=== PATIENT | female | born 1970 | race Caucasian/White ===

== ENCOUNTER 2017-05-24 05:28 | Inpatient (IN) | payer OTHER ==
[~2017-05-24] VITALS: Ht 173 cm; Wt 78.0 kg
--- NOTE | ~2017-05-24 | WRIGHTHP ---
[place], [place] PATIENT HISTORY AND PHYSICAL EXAM NAME: SARAH GÓMEZ UNIT #: [id number] ROOM: 511 DOCTOR: AUBREY BUSTILLO MD BIRTHDATE: [birth year] DOS: 05/24/2017 HISTORY OF PRESENT ILLNESS: The patient with a past medical history of benign essential hypertension, presented to the Emergency Department with off and on complaints of sensation of palpitations for some time and then she started complaining of some precordial chest pain with no shortness of breath and nausea, but she did feel dizzy with the palpitations. No nausea or diaphoresis. No other GI or urinary symptoms. No fainting episodes. The patient's chest pains have resolved and she has been seen by Cardiology. REVIEW OF SYSTEMS: LUNGS: No shortness of breath or wheezing. GASTROINTESTINAL: No nausea, vomiting or diarrhea. CARDIOVASCULAR SYSTEM: Complains of some chest pains prior to coming to the hospital, but she is pain free now. Occasional complains of palpitations with dizziness, but no fainting spells. FAMILY HISTORY: Noncontributory. PHYSICAL EXAMINATION: VITAL SIGNS: Blood pressure 124/78, heart rate of 74 beats per minute, breathing 20 times per minute, temperature 98 degrees Fahrenheit. LABORATORY DATA: Negative cardiac enzymes x 3. IMPRESSION AND PLAN: 1. The patient with chest pain from uncertain etiology with negative cardiac enzymes. Dr. Landeros, the wet mix operator wants to do a cardiac stress test on her as an outpatient. 2. Occasional palpitations with some dizziness. The patient asked to count her heart rate when she has these episodes, but then she will also get a Holter monitor study as an outpatient by Dr. Landeros. The patient's cardiac monitoring at the hospital has shown no tachycardia so far. 3. Benign essential hypertension with controlled blood pressures. [place], [place] PATIENT HISTORY AND PHYSICAL EXAM NAME: SARAH GÓMEZ UNIT #: [id number] ROOM: 511 DOCTOR: AUBREY BUSTILLO MD BIRTHDATE: [birth year] AUBREY BUSTILLO MD CM:HISPHYS:PATIENT HISTORY AND PHYSICAL EXAMINATION [id number] [phone] AUBREY BUSTILLO MD 05/24/172221 interface
--- NOTE | ~2017-05-24 | CON ---
[place], [place] REPORT OF CONSULTATION NAME: SARAH GÓMEZ [facility] #: [id number] UNIT #: [id number] ROOM: 511 DOCTOR: JOSE GIBSON MD BIRTHDATE: [birth year] DOS: 05/24/2017 REASON FOR CONSULTATION: Palpitations. CONSULTING PHYSICIAN: Dr. Correa. HISTORY OF PRESENT ILLNESS: This is a 47-year-old patient with history of hypertension, morbid obesity, presented to the Emergency Room with intermittent palpitations. She is describing these as heart fluttering several times a day. This has been going on for about 2 months. No associated dizziness or syncope. The symptoms lasted for a few seconds and is usually relieves with bending forward, coughing with Valsalva maneuver. During these palpitations, she noted to have some chest heaviness, otherwise, she denies any exertional chest pains. She noted that the symptoms are gradually progressive. She did cut back her caffeine, especially coffee, but still having these symptoms. She has history of hypertension for 3 years and she takes Coreg for blood pressure. She denies any nausea, vomiting, diarrhea, no fever, no chills, no hemoptysis, no headaches, occasional left leg edema is positive, but no tingling, numbness or weakness. No blurred vision or double vision, no genitourinary symptoms. No musculoskeletal symptoms, especially she denies any exertional chest pains. REVIEW OF SYSTEMS: Review of the 10 systems negative except as mentioned above. PAST MEDICAL HISTORY: 1. Hypertension. 2. Non-morbid obesity. HOME MEDICATIONS: Reviewed home medications are Coreg 6.25 twice a day. FAMILY HISTORY: History of colon cancer, but no premature coronary artery disease. PAST SURGICAL HISTORY: Reviewed. PHYSICAL EXAMINATION: VITAL SIGNS: Blood pressure 122/76, pulse 86, respiratory rate 20. Weight 78 kilos with a BMI 26.1. GENERAL: Alert, comfortable, in no acute distress. HEENT: Pupils are round and equal. Tongue was moist and pharynx clear. NECK: Supple, no distended neck veins, no carotid bruit. Thyroid not palpable. CHEST: Chest wall symmetrical, nontender. LUNGS: Clear to auscultation bilaterally. HEART: Regular, no S3, grade 1/6 soft systolic murmur. No palpable thrills. ABDOMEN: Bowel sounds normal. EXTREMITIES: Showed no edema. Distal pulses are palpable. SKIN: Warm and dry. No cyanosis, no clubbing. NEUROLOGIC: The patient is alert, oriented. No focal neurologic deficit. RECTAL: Deferred. GENITOURINARY: Deferred. [place], [place] REPORT OF CONSULTATION NAME: SARAH GÓMEZ UNIT #: [id number] ROOM: 511 DOCTOR: JOSE GIBSON MD BIRTHDATE: [birth year] REVIEW OF THE DIAGNOSTIC TESTS: EKG shows sinus rhythm with no acute ST-T changes, normal QT interval. Patient had occasional PVCs. Her labs reviewed including CBC, chemistry. The troponin x 2 negative. Magnesium 2.2, bilirubin was 1.2. IMPRESSION: 1. Palpitations, possible supraventricular tachycardia, none was diagnosed so far and documented. 2. Occasional ventricular ectopy. 3. Hypertension, stable on her Coreg. 4. Non-morbid obesity. RECOMMENDATIONS: Check a TSH to rule out hyperthyroidism. ____ for any tachyarrhythmias on the monitor; so far, nothing was documented. If she has no further symptoms, she can be discharged home tomorrow and she will need outpatient cardiac event monitor, 30 days, as well as outpatient 2D echo and as well as outpatient exercise nuclear stress test. Risk factor modification discussed. Further recommendation based on her symptoms. Further treatment for her palpation including medications versus a possible EP referral collaboration was discussed with her and her who is at bedside and all questions were answered. JOSE GIBSON MD CM:CONSTR:REPORT OF CONSULTATION 1426 05/24/17 2247 interface
--- NOTE | ~2017-05-24 | EKG ---
[place], [place] ELECTROCARDIOGRAM REPORT NAME: SARAH GÓMEZ UNIT #: [id number] ROOM: 511 DOCTOR: PAIGE DAWN,JOSE BIRTHDATE: [birth year] DOS: 05/24/2017 TIME: 0541 hours. IMPRESSION: 1. Sinus rhythm. 2. Ventricular ectopy. 3. Baseline artifacts. JOSE GIBSON MD CM:EKGRPT:ELECTROCARDIOGRAM REPORT [id number] 1309 JOSE GIBSON MD
--- NOTE | ~2017-05-24 | PR ---
[place], [place] PROGRESS NOTE NAME: SARAH GÓMEZ UNIT #: [id number] ROOM: 511 DOCTOR: JOSE GIBSON MD BIRTHDATE: [birth year] DOS: 05/25/2017 REASON FOR VISIT: Palpitations and hypertension. SUBJECTIVE: The patient denies any chest pain, palpitations. No dizziness, no nausea, vomiting. No fever or chills. No PND, no orthopnea. She had slight bradycardia during midnight, asymptomatic. RHYTHM STRIPS: The patient is in sinus rhythm, sinus bradycardia at midnight; the heart rates in the high 40s. PHYSICAL EXAMINATION: VITAL SIGNS: Blood pressure 120/62, pulse 75, respiratory rate 20. GENERAL: Alert, comfortable, in no acute distress. HEAD AND NECK: Supple, no distended neck veins, no carotid bruit. Tongue was moist and pharynx was clear. CHEST: Symmetrical, nontender. LUNGS: Clear to auscultation bilaterally. HEART: Regular rhythm, no S3. ABDOMEN: Bowel sounds normal. EXTREMITIES: No edema. Distal pulses palpable. SKIN: Warm and dry. No cyanosis, no clubbing. NEUROLOGIC: The patient is alert, oriented. No focal neurologic deficit. IMPRESSION: 1. Palpitations, currently stable, no tachycardia on the monitor. 2. Sinus bradycardia at night, asymptomatic. 3. Hypertension, stable. 4. Non-morbid obesity. RECOMMENDATIONS: 1. Continue current medications. 2. She would like to go home today. 3. She needs outpatient cardiac event monitor for her palpitations and also she needs a 2D echo for LV function and valvular function and also exercise nuclear stress test to rule out underlying ischemia due to her palpitations and hypertension. Her cardiac event monitor, stress test and echo will be scheduled as outpatient and she will follow up with [facility]iology office after the above tests. Above treatment plan discussed with the patient and all questions answered. She can be discharged home today on her home medications. [place], [place] PROGRESS NOTE NAME: SARAH GÓMEZ UNIT #: [id number] ROOM: 511 DOCTOR: JOSE GIBSON MD BIRTHDATE: [birth year] JOSE GIBSON MD CM:TING [phone] JOSE GIBSON MD 05/25/172354 interface
--- NOTE | ~2017-05-24 | DS ---
[place], [place] DISCHARGE SUMMARY NAME: SARAH GÓMEZ UNIT #: [id number] ROOM: 511 DOCTOR: AUBREY BUSTILLO MD BIRTHDATE: [birth year] DOS: 05/25/2017 DISCHARGE DIAGNOSES: 1. Chest pains from uncertain etiology, negative cardiac enzymes. The patient is scheduled for outpatient cardiac stress as an Holter monitor by Dr. Landeros. 2. Palpitations off and on, possible supraventricular tachycardia. The patient to get Holter monitor study as an outpatient to be arranged by Dr. Landeros. 3. Benign essential hypertension. A 47-year-old female presented to the Emergency Department with precordial chest pain and history of recurrent palpitations or dizziness. HOSPITAL COURSE: The patient was admitted and ruled out for myocardial infarction with serial cardiac enzymes and cleared by Dr. Landeros, the surgeon, for discharge to home today. Dr. Landeros has arranged for her to get a Holter monitoring study and a cardiac stress test performed as an outpatient. The patient will also go and see her primary care physician, Dr. Daniel Garza, as an outpatient within less than a week of discharge. I have added aspirin to her treatment and she will continue with Coreg she was taking at home. The patient remained on a director cardiac and no significant cardiac dysrhythmias were observed during her stay at the hospital. LABORATORY DATA: Negative cardiac enzymes. DISCHARGE MANAGEMENT: Aspirin 81 mg a day, Coreg 6.25 mg b.i.d. Follow up with Dr. Landeros and Dr. Daniel Garza within a week of discharge. [place], [place] DISCHARGE SUMMARY NAME: SARAH GÓMEZ UNIT #: [id number] ROOM: 511 DOCTOR: AUBREY BUSTILLO MD BIRTHDATE: [birth year] AUBERY BUSTILLO MD CM:DISCHARG [phone] AUBREY BUSTILLO MD 05/25/172103 interface
[~2017-05-24 05:28] MED LIST: COREG6.25 MG PO; MOTRIN800 MG PO; PERCOCET 325 MG1 TA5 PO; VOLTAREN50 M1 PO
[2017-05-24 05:46] VITALS: BP 145/105
[2017-05-24 06:13] LABS: BASO % 0.2 % (0.0-1.0); EOS # 0.1 10*3/uL (0.0-0.4); EOS % 1.5 % (1.0-4.0); HEMATOCRIT 40.1 % (37.0-47.0); LYMPH # 2.5 10*3/uL (1.3-4.4); LYMPH % 38.5 % (27.0-41.0); MEAN CORPUSCULAR HGB 28.6 pg (27.0-31.0); MEAN CORPUSCULAR HGB CONC 34.9 g/dl (33.0-37.0); MEAN PLATELET VOLUME 11.6 fl (9.6-12.3); MONO # 0.7 10*3/uL (0.1-1.0); MONO % 10.2 % (3.0-9.0); NEUT # 3.2 10*3/uL (2.3-7.9); NEUT % 49.3 % (47.0-73.0); PLATELET COUNT AUTOMATED 189 10*3/uL (130-400); RED BLOOD COUNT 4.89 10*6/uL (4.10-5.10); RED CELL DISTRI WIDTH 12.7 % (0-14.5); WHITE BLOOD COUNT 6.5 10*3/uL (4.8-10.8)
[2017-05-24 06:24] LABS: ACT PARTIAL THROMBO TIME 26.7 SECONDS (20.8-31.5)
[2017-05-24 06:31] LABS: ALBUMIN 3.6 gm/dl (3.1-4.5); ALKALINE PHOSPHATASE 82 U/L (45-117); BUN 22 mg/dl (7-24); CHLORIDE 108 mmol/L (98-107); CREATININE 0.85 mg/dL (0.55-1.02); MAGNESIUM 2.2 mg/dL (1.5-2.1); POTASSIUM 3.6 mmol/L (3.5-5.1); SGOT/AST 17 IU/L (3-35); SGPT/ALT 27 U/L (12-78); SODIUM 140 mmol/L (136-145); TOTAL PROTEIN 7.5 gm/dL (6.4-8.2)
[2017-05-24 06:33] LABS: TROPONIN I < 0.015 ng/ml (<0.045)
[2017-05-24 07:25] VITALS: BP 127/78
--- NOTE | 2017-05-24 07:52 | NUR ---
A 47, admitted to , under the services of Dr. KENY DAWN,AUBREY Ruff with a diagnosis of CHEST PAIN, PALPITATIONS. Chief complaint is PALPITATIONS X2 MONTHS, MIDSTERNAL PRESSURE. Patient arrived via BED from ER. Monitor applied. Initial assessment completed. Vital signs taken and recorded. DR. KENY DAWN,UABREY Ruff notified of admission to the unit. Orders received. See assessment for past medical history, medications and allergies. Patient and/or family oriented to unit. [facility] visitation policy reviewed. Clothing/patient valuable form completed. MICHELLE BRYANT
[2017-05-24 08:00] VITALS: BP 126/84
--- NOTE | 2017-05-24 08:20 | NUR ---
Pt med rec up to date.
--- NOTE | 2017-05-24 08:30 | NUR ---
PT HAS NO WOUNDS, STATES SHE IS UP TO DATE ON FLU AND PNEUMONIA VACCINES.
--- NOTE | 2017-05-24 09:10 | NUR ---
DR PEARSON NOTIFIED OF CONSULT
[2017-05-24 12:00] VITALS: BP 122/76
--- NOTE | 2017-05-24 12:59 | NUR ---
PT RESTING IN BED, NO COMPLAINTS.
--- NOTE | 2017-05-24 14:00 | NUR ---
DR PEARSON IN TO SEE PATIENT
[2017-05-24 16:00] VITALS: BP 124/78
[2017-05-24 20:00] VITALS: BP 116/60
[2017-05-25] VITALS: BP 120/82
--- NOTE | 2017-05-25 02:22 | NUR ---
CONTACTED DR. DOHERTY BECAUSE PATIENTS HEART RATE DROPPED TO 47-MID 50'S. NO NEW ORDERS, PHYSICIAN TO FOLLOW UP AT BEDSIDE.
[2017-05-25 08:00] VITALS: BP 120/62
--- NOTE | 2017-05-25 11:28 | NUR ---
DR. DOHERTY STATES PATIENT CAN BE DISCHRAGED FROM CARDIOLOGY [facility]AND [facility]INT. [facility] WILL CONTACT PATIENT TO SET UP OUT PATIENT TESTING.
[2017-05-25 12:00] VITALS: BP 136/83
[2017-05-25] MEDS ORDERED: ASPIRIN ADULT L81 M1 PO (15:35)
--- NOTE | 2017-05-25 16:00 | NUR ---
Discharge instructions reviewed with patient/family. Patient receptive and verbalizes understanding. Follow-up care arranged. Written instructions given to patient/family. VENECIA YOUNGBLOOD
== END 2017-05-25 16:25 | disposition home or self-care (01) | DRG 313 ==
LOC: ED 05:28 → EDHOLD 06:45 → 5E 07:30
PROVIDERS: Student in an Organized Health Care Education/Training Program; ADMIT Internal Medicine
DX: R07.2 Precordial pain (principal); I10 Essential (primary) hypertension; I47.1 Supraventricular tachycardia; E66.8 Other obesity; Z80.0 Family history of malignant neoplasm of digestive organs

== ENCOUNTER → 2017-06-27 | Outpatient (CLI) | payer OTHER ==
[~2017-06-27] MED LIST changes: +ASPIRIN ADULT L81 M1 PO
[2017-06-27 16:21] LABS: HEMOGLOBIN 13.4 g/dl (12.0-16.0); MEAN CELL VOLUME 80.3 fl (81.0-99.0); MEAN CORPUSCULAR HGB 28.3 pg (27.0-31.0); MEAN CORPUSCULAR HGB CONC 35.3 g/dl (33.0-37.0); MEAN PLATELET VOLUME 11.1 fl (9.6-12.3); RED BLOOD COUNT 4.73 10*6/uL (4.10-5.10); RED CELL DISTRI WIDTH 13.1 % (0-14.5); WHITE BLOOD COUNT 7.4 10*3/uL (4.8-10.8)
[2017-06-27 16:41] LABS: ALBUMIN 3.6 gm/dl (3.1-4.5); ALKALINE PHOSPHATASE 102 U/L (45-117); BUN 15 mg/dl (7-24); CHLORIDE 105 mmol/L (98-107); CHOLESTEROL 177 mg/dL (<200); CREATININE 0.87 mg/dL (0.55-1.02); HDL CHOLESTEROL 62 mg/dl (40-60); LDL CHOLESTEROL 82 mg/dL (9-159); POTASSIUM 3.6 mmol/L (3.5-5.1); SGOT/AST 19 IU/L (3-35); SGPT/ALT 34 U/L (12-78); SODIUM 140 mmol/L (136-145); TOTAL PROTEIN 7.9 gm/dL (6.4-8.2); TRIGLYCERIDES 164 mg/dl (<150); VLDL CHOLESTEROL 33 mg/dL (6-40)
== END | disposition home or self-care (01) ==
LOC: LAB 15:53
PROVIDERS: Family Medicine
DX: E55.9 Vitamin D deficiency, unspecified (principal); R53.83 Other fatigue; R42 Dizziness and giddiness; R63.5 Abnormal weight gain; R79.89 Other specified abnormal findings of blood chemistry

== ENCOUNTER 2020-08-19 22:47 | Emergency (ER) | payer BC ==
[~2020-08-19] VITALS: Ht 172.7 cm; Wt 79.8 kg
[2020-08-20 00:16] LABS: BASO % 0.3 % (0.0-1.0); EOS % 0.9 % (1.0-4.0); LYMPH # 0.9 10*3/uL (1.3-4.4); LYMPH % 26.5 % (27.0-41.0); MEAN CELL VOLUME 79.9 fl (81.0-99.0); MEAN CORPUSCULAR HGB 26.8 pg (27.0-31.0); MEAN CORPUSCULAR HGB CONC 33.6 g/dl (33.0-37.0); MEAN PLATELET VOLUME 10.8 fl (9.6-12.3); MONO # 0.3 10*3/uL (0.1-1.0); MONO % 9.8 % (3.0-9.0); NEUT # 2.1 10*3/uL (2.3-7.9); NEUT % 62.2 % (47.0-73.0); PLATELET COUNT AUTOMATED 145 10*3/uL (130-400); RED BLOOD COUNT 4.88 10*6/uL (4.10-5.10); RED CELL DISTRI WIDTH 12.5 % (0-14.5); WHITE BLOOD COUNT 3.4 10*3/uL (4.8-10.8)
[2020-08-20 00:31] LABS: ALBUMIN 3.2 gm/dl (3.1-4.5); ALKALINE PHOSPHATASE 83 U/L (45-117); BUN 18 mg/dl (7-24); CHLORIDE 108 mmol/L (98-107); CPK 43 U/L (26-192); CREATININE 0.97 mg/dL (0.55-1.02); LDH 209 U/L (84-246); POTASSIUM 3.8 mmol/L (3.5-5.1); SGOT/AST 29 IU/L (3-35); SGPT/ALT 33 U/L (12-78); SODIUM 139 mmol/L (136-145); TOTAL PROTEIN 7.1 gm/dL (6.4-8.2)
[2020-08-20] MEDS ORDERED: PHENERGAN25 M3 PO (02:56)
[2020-08-20] MEDS ORDERED: ZITHROMAX250 MG PO (02:56)
== END 2020-08-20 03:16 | disposition home or self-care (01) ==
LOC: ED 22:47
PROVIDERS: Emergency Medicine
DX: U07.1 COVID-19 (principal); J18.9 Pneumonia, unspecified organism

== ENCOUNTER → 2022-03-22 | Outpatient (CLI) | payer BC ==
[~2022-03-22] MED LIST changes: +PHENERGAN25 M3 PO; +ZITHROMAX250 MG PO
[2022-03-22 12:24] LABS: HEMATOCRIT 37.8 % (37.0-47.0); MEAN CELL VOLUME 83.3 fl (81.0-99.0); MEAN CORPUSCULAR HGB 28.4 pg (27.0-31.0); MEAN CORPUSCULAR HGB CONC 34.1 g/dl (33.0-37.0); MEAN PLATELET VOLUME 11.2 fl (9.6-12.3); RED BLOOD COUNT 4.54 10*6/uL (4.10-5.10); RED CELL DISTRI WIDTH 13.6 % (0-14.5); WHITE BLOOD COUNT 5.9 10*3/uL (4.8-10.8)
[2022-03-22 12:40] LABS: ALKALINE PHOSPHATASE 84 U/L (45-117); BUN 17 mg/dl (7-24); CHLORIDE 111 mmol/L (98-107); CHOLESTEROL 182 mg/dL (<200); CREATININE 0.85 mg/dL (0.55-1.02); LDL CHOLESTEROL 102 mg/dL (9-159); POTASSIUM 4.4 mmol/L (3.5-5.1); SGOT/AST 14 IU/L (3-35); SGPT/ALT 21 U/L (12-78); SODIUM 142 mmol/L (136-145); TOTAL PROTEIN 7.3 gm/dL (6.4-8.2); TRIGLYCERIDES 89 mg/dl (<150)
== END | disposition home or self-care (01) ==
LOC: LAB 11:54
PROVIDERS: ATTEND Family Medicine
DX: Z00.00 Encounter for general adult medical examination without abnormal findings (principal); I10 Essential (primary) hypertension; E55.9 Vitamin D deficiency, unspecified